=== PATIENT | male | born 1995 | race Two or more races ===

== ENCOUNTER 2016-08-29 12:15 | Emergency (ER) | payer SELFPAY ==
[~2016-08-29] VITALS: Ht 177.8 cm; Wt 72.6 kg
[2016-08-29] MEDS ORDERED: ACETAMINOPHEN 325 MG TAB PO ONE ×2 (12:18→12:30)
[2016-08-29 13:02] VITALS: BP 118/77
[2016-08-29] MEDS ORDERED: cefTRIAXone SOD 1,000 MG VL IM ONE (14:00)
[2016-08-29] MEDS ORDERED: methylPREDNISolone SOD SUCC 125 MG/2 ML VL IM ONE (14:00)
== END 2016-08-29 15:02 | disposition home or self-care (01) ==
LOC: ER 12:15
DX: J03.90 Acute tonsillitis, unspecified (principal)
CPT/HCPCS: 96372; 99284; J0696; J2930